=== PATIENT | male | born 1995 | race Caucasian/White ===

== ENCOUNTER 2023-06-29 17:38 | Emergency (ER) | payer OTHER, SELFPAY ==
[2023-06-29 17:40] VITALS: BP 130/83; PULSE 82; RESP 18; TEMP 37.1; O2SAT 99; BMI 27.3
--- NOTE | 2023-06-29 17:46 | ED_ITS ---
HPI - Abdominal Pain General Chief Complaint: Abdominal Pain Stated Complaint: ABDOMINAL PAIN Time Seen by Provider: 06/29/23 17:39 History of Present Illness HPI narrative: 27 -year-old male presents for abdominal pain. It started four days ago and it started in his right flank and then it moved to the side of his abdomen and now it's in the right lower abdomen. The patient has a history of kidney stones and passed one about a month ago. He states it feels a little bit different this time and he's worried about his appendix. No trauma or fever and the pain is continuous and moderate. Related Data Allergies Allergy/AdvReac Type Severity Reaction Status Date / Time No Known Drug Allergies Allergy Verified 06/29/23 17:45 Review of Systems ROS Narrative A ten point review of systems is negative except as noted above. Exam Narrative Exam Narrative: Nurses note and vital signs reviewed and patient is not hypoxic. General: The patient appears well and in no apparent distress. Patient is res ting comfortably on cart. Skin: Warm, dry, no pallor noted. There is no rash noted. Head: Normocephalic, atraumatic Eye: Normal conjunctiva, no drainage Ears, Nose, Mouth, and Throat: oral mucosa is moist. Nares patent. Cardiovascular: Regular Rate and Rhythm Respiratory: Patient is in no distress, no accessory muscle use, lungs are clear to auscultation, no wheezing, rales or rhonchi Back: non-tender, no CVA tenderness bilaterally to percussion. GI: tender only in the right lower quadrant Musculoskeletal: The patient has no evidence of calf tenderness, no pitting edema, symmetrical pulses noted bilaterally Neurological: A&O, normal speech Psychiatric: Cooperative Constitutional Vital Signs, click to edit/add: Last Vital Signs Temp 98.7 F 06/29/23 17:40 Pulse 82 06/29/23 17:40 Resp 18 06/29/23 17:40 BP 130/83 06/29/23 17:40 Pulse Ox 99 06/29/23 17:40 O2 Del Method Room Air 06/29/23 17:40 Course Vital Signs Vital signs: Vital Signs Temperature 98.7 F 06/29/23 17:40 Pulse Rate 82 06/29/23 17:40 Respiratory Rate 18 06/29/23 17:40 Blood Pressure 130/83 06/29/23 17:40 Pulse Oximetry 99 06/29/23 17:40 Oxygen Delivery Method Room Air 06/29/23 17:40 Temperature 98.7 F 06/29/23 17:40 Pulse Rate 82 06/29/23 17:40 Respiratory Rate 18 06/29/23 17:40 Blood Pressure 130/83 06/29/23 17:40 Pulse Oximetry 99 06/29/23 17:40 Oxygen Delivery Method Room Air 06/29/23 17:40 MDM - Abdominal Pain MDM Narrative Medical decision making narrative: tests are ordered and the patient is signed out to Dr. Tilley. No blood is noted in the urine. Differential Diagnosis Differential diagnosis: Likely abdominal pain, acute appendicitis, calculus of kidney, constipation and gastroenteritis Lab Data Labs: Lab Results 06/29/23 Range/Units 17:45 Urine Color Yellow (YELLOW) Urine Clarity Clear (CLEAR) Urine pH 5.5 (5.0-9.0) Ur Specific [place] >=1.030 A (1.005-1.025) Urine Protein Negative (NEG/TRACE) mg/dL Urine Glucose (UA) Negative (NEGATIVE) mg/dL Urine Ketones Trace A (NEGATIVE) mg/dL Urine Occult Blood Negative (NEGATIVE) Urine Nitrite Negative (NEGATIVE) Urine Bilirubin Negative (NEGATIVE) Urine Urobilinogen 0.2 (0.2-1.0) EU/dL Ur Leukocyte Esterase Negative (NEGATIVE) Urine RBC None seen (0-2) #/HPF Urine WBC None seen (NONE SEEN) #/HPF Ur Squamous Epith Cells Rare (NONE/RARE) #/LPF Urine Crystals None seen (None Seen) #/HPF Urine Bacteria None seen (NONE SEEN) #/HPF Urine Casts None seen (NONE SEEN) #/LPF Urine Mucus Moderate A (NONE SEEN) Discharge Plan Discharge Patient Disposition: Still a Patient
[2023-06-29 18:20] LABS: Bilirubin Urine NEGATIVE (NEGATIVE); Blood Urine NEGATIVE (NEGATIVE); Clarity Urine CLEAR (CLEAR); Color Urine YELLOW (YELLOW); Glucose Urine UA NEGATIVE (NEGATIVE); Ketones Urine TRACE mg/dL (NEGATIVE); Leukocyte Esterase Urine NEGATIVE (NEGATIVE); Nitrite Urine NEGATIVE (NEGATIVE); Protein Urine NEGATIVE (NEG/TRACE); Specific Gravity Urine >=1.030 (1.005-1.025); Urobilinogen Urine 0.2 EU/dL (0.2-1.0); pH Urine 5.5 (5.0-9.0)
[2023-06-29 18:22] LABS: Bacteria Urine NONE SEEN #/HPF (NONE SEEN); Mucus Urine MODERATE (NONE SEEN); RBC Urine NONE SEEN #/HPF (0-2); Squamous Epithelial Cell Urine RARE #/LPF (NONE/RARE); WBC Urine NONE SEEN #/HPF (NONE SEEN)
[2023-06-29 18:23] LABS: Cast Seen? NONE SEEN #/LPF (NONE SEEN); Crystals Seen? None Seen #/HPF (None Seen)
--- NOTE | 2023-06-29 18:24 | CT_ITS ---
[address] [address] Patient Name: LEX COLEMAN MRN: [id number] date: 1995 Sex: M Assigned Patient Location: ER Current Patient Location: ER Accession/Order Number: [id number] Exam Date: 06/29/2023 18:45 Report Date: 06/29/2023 19:33 At the request of: COLLINS WYATT Procedure: CT abdomen pelvis w con EXAM: CT abdomen pelvis w con; [id number] REASON FOR EXAM: right lower quadrant pain TECHNIQUE: Helical CT images of the abdomen and pelvis were obtained after the administration of IV contrast. Multiplanar reformats were generated at the scanner. Dose reduction technique used: Automated exposure control and/or adjustment of the mA and/or kV according to patient size and/or use of iterative reconstruction technique. COMPARISON: None. FINDINGS: Visualized Chest: Minimal left basilar atelectasis. Abdomen: Liver: Mild focal fatty infiltration along the falciform ligament. Gallbladder: Resected. Bile Ducts: No significant biliary ductal dilatation. Pancreas: No mass, ductal dilatation, or inflammatory changes. Spleen: No splenomegaly or focal lesion. Adrenals: No nodules. Kidneys: -No stones or hydronephrosis. -No mass. Vascular: No aortic aneurysm. Lymph Nodes: No adenopathy. Abdominal Wall: No hernia or mass. Pelvis: No mass or adenopathy. Bowel/Peritoneal Cavity/Mesentery: -No bowel obstruction or significant ileus. -No acute inflammatory changes. -No free air or free fluid. -The appendix is normal. Musculoskeletal: No acute fracture or suspicious osseous lesion. Mild diffuse increased density of the bone marrow. Mild/moderate osteophytosis both hips. Moderate degenerative changes with focal kyphosis involving the visualized lower thoracic spine which could represent Scheuermann's syndrome. CT/CT abdomen pelvis w con IMPRESSION: 1. No acute intra-abdominal abnormality demonstrated. Specifically, no kidney stones or evidence of acute appendicitis. 2. Mild diffuse bone marrow sclerosis which is of uncertain etiology. 3. 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 Electronically authenticated by: PALOMA PALAFOX Date: 06/29/2023 19:33
[2023-06-29 18:47] LABS: Basophils Absolute Auto 0.1 10^3/uL (0.0-0.1); Basophils Percent Auto 0.6 % (0.2-2.0); Eosinophils Absolute Auto 0.1 10^3/uL (0.0-0.7); Hematocrit 46.3 % (42.0-54.0); Hemoglobin 15.4 g/dL (14.0-18.0); Immature Granulocytes Abs Auto 0.03 10^3/uL (0.00-0.03); Immature Granulocytes Pct Auto 0.3 % (0.0-0.5); Lymphocytes Percent Auto 27.1 % (20.5-60.0); Mean Corpuscular HGB Conc 33.3 g/dL (29.9-35.2); Mean Corpuscular Hemoglobin 30.4 pg (25.9-34.0); Mean Corpuscular Volume 91.3 fL (80.0-94.0); Mean Platelet Volume 8.9 fL (9.5-13.5); Monocytes Absolute Auto 0.8 10^3/uL (0.3-0.8); Monocytes Percent Auto 7.2 % (1.7-12.0); Neutrophils Absolute Auto 7.1 10^3/uL (1.4-6.5); Neutrophils Percent Auto 63.8 % (43.0-75.0); Platelet Count 249 10^3/uL (150-450); Red Blood Count 5.07 10^6/uL (4.70-6.10); Red Cell Distribution Width 12.5 % (11.0-15.0); White Blood Count 11.2 10^3/uL (4.0-11.0)
[2023-06-29 18:56] LABS: Anion Gap 11.9; Calcium 9.2 mg/dL (8.5-10.1); Carbon Dioxide 27.4 mmol/L (21.0-32.0); Chloride 103 mmol/L (98-107); Estimated GFR (African America >60 (>=60); Estimated GFR (Non-African Ame >60 (>=60); Glucose 88 mg/dL (74-106); Potassium 4.3 mmol/L (3.5-5.1); Sodium 138 mmol/L (136-145)
== END 2023-06-29 20:05 | disposition home or self-care (01) ==
PROVIDERS: Emergency Medicine; Emergency Provider Internal Medicine
DX: R10.9 Unspecified abdominal pain (principal); Z87.442 Personal history of urinary calculi
CPT/HCPCS: 36415; 74177; 80048; 81001; 85025; 99284; Q9967

== ENCOUNTER 2024-05-22 16:07 | Emergency (ER) | payer OTHER, SELFPAY ==
[2024-05-22 16:14] VITALS: BP 147/85; PULSE 71; TEMP 36.7; O2SAT 100; BMI 34.4
--- NOTE | 2024-05-22 16:31 | ED_ITS ---
HPI HPI - General Adult General Chief complaint: Back Pain/Injury Stated complaint: Kidney Stone Time Seen by Provider: 05/22/24 16:28 Source: patient Mode of arrival: walk-in Limitations: no limitations History of Present Illness HPI narrative: Patient is a 20-year-old male who is presenting to the ER with chief complaint of left lower back pain, flank pain left lower quadrant pain. Patient said this pain started Wednesday evening, the pain has been consistent, the severity of the pain has been waxing and waning. Patient stated that he passed 3 kidney stones last year, he never came to the ER or saw a physician at that time. Patient has no urologist. Patient girlfriend is at bedside. Patient has dysuria and urgency when he is urinating. Patient has no abdominal pain, nausea or vomiting. No testicular pain. No hematuria. 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 No other acute complaints. All systems are negative except as noted/marked. All systems reviewed and otherwise negative. Nurses note and vital signs reviewed and patient is not hypoxic. General: The patient appears well and in no apparent distress. Patient is resting comfortably on cart. Patient is not toxic, lethargic, or listless Skin: Warm, dry, no pallor noted. There is no rash noted. No petechiae, purpura. Head: Normocephalic, atraumatic Eye: Normal conjunctiva, no drainage, EOMI. PERRL Ears, Nose, Mouth, and Throat: oral mucosa is moist. Nares patent. Mouth without vesicles. Cardiovascular: Regular Rate and Rhythm, no murmur, gallop, rub Respiratory: Patient is in no distress, no accessory muscle use, lungs are clear to auscultation, no wheezing, rales or rhonchi Back: Patient has mild to moderate left CVA tenderness to palpation, mild left flank tenderness to palpation, mild left lower quadrant tenderness palpation, no peritoneal signs, otherwise the rest of his abdomen is non-tender, + CVA on the right to percussion. No CT LS midline pain. GI: no tenderness to palpation, no masses appreciated. No rebound, guarding, or rigidity noted. No distention. No peritoneal signs, mild left lower quadrant tenderness to palpation, no suprapubic tenderness palpation. Musculoskeletal: Patient has full range of motion of all of the extremities, no motor, sensory, or focal neurological deficits Neurological: A&O x4, normal speech Psychiatric: Cooperative Related Data Home Medications ?Medication ?Instructions ?Recorded ?Confirmed pantoprazole 40 mg tablet,delayed 40 mg PO DAILY 05/22/24 05/22/24 release trazodone 50 mg tablet 50 mg PO DAILY 05/22/24 05/22/24 Previous Rx's ?Medication ?Instructions ?Recorded ketorolac 10 mg tablet 10 mg PO Q8H PRN pain 1 day #10 05/22/24 tabs ondansetron 4 mg disintegrating 4 mg PO Q4H PRN nausea and 05/22/24 tablet vomiting 3 days #6 tabs tamsulosin 0.4 mg capsule (Flomax) 0.4 mg PO DAILY 7 days #7 caps 05/22/24 Allergies Allergy/AdvReac Type Severity Reaction Status Date / Time No Known Drug Allergies Allergy Verified 06/29/23 17:45 Opioid HPI Opioid Management Most Recent Opioid Data: Last Pain Scale 8 05/22/24 17:09 05/22/24 PFSH PFSH Social History Little interest or pleasure in doing things: not at all Feeling down, depressed, or hopeless: not at all Exam Constitutional Vital Signs, click to edit/add: Last Vital Signs Temp 98.1 F 05/22/24 16:14 Pulse 57 L 05/22/24 18:36 Resp 18 05/22/24 18:36 BP 132/74 05/22/24 18:36 Pulse Ox 100 05/22/24 18:36 O2 Del Method Room Air 05/22/24 16:14 Course Vital Signs Vital signs: Vital Signs Temperature 98.1 F 05/22/24 16:14 Pulse Rate 71 05/22/24 16:14 Respiratory Rate 18 05/22/24 16:14 Blood Pressure 147/85 H 05/22/24 16:14 Pulse Oximetry 100 05/22/24 16:14 Oxygen Delivery Method Room Air 05/22/24 16:14 Temperature 98.1 F 05/22/24 16:14 Pulse Rate 57 L 05/22/24 18:36 Respiratory Rate 18 05/22/24 18:36 Blood Pressure 132/74 05/22/24 18:36 Pulse Oximetry 100 05/22/24 18:36 Oxygen Delivery Method Room Air 05/22/24 16:14 Medical Decision Making MDM Narrative Medical decision making narrative: Patient has had several CAT scans in the past. We will undergo a x-ray KUB to save radiation, education on radiation and multiple CAT scans in the past was discussed, patient agrees on x-ray. Patient will be given IV Toradol and Zofran. Patient requested to Ivan RN that no narcotics be given. Urine, labs, x-ray showed no acute findings. Patient was sent home with prescription for Toradol, Flomax, Zofran use as needed. Patient does not want a prescription for narcotics. Patient has a history of opioid dependence and abuse, he has been clean for 2 years. Patient was referred to Dr. Spears and understands that he should follow-up with antonia restrepo. No questions at discharge. Patient was thankful for help and care today. Lab Data Labs: Lab Results 05/22/24 05/22/24 Range/Units 16:21 16:53 WBC 8.8 (4.0-11.0) 10^3/uL RBC 4.88 (4.70-6.10) 10^6/uL Hgb 15.6 (14.0-18.0) g/dL Hct 43.3 (42.0-54.0) % MCV 88.7 (80.0-94.0) fL MCH 32.0 (25.9-34.0) pg MCHC 36.0 H (29.9-35.2) g/dL RDW 11.7 (11.0-15.0) % Plt Count 259 (150-450) 10^3/uL MPV 9.1 L (9.5-13.5) fL Neut % (Auto) 56.0 (43.0-75.0) % Lymph % (Auto) 36.2 (20.5-60.0) % [place] % (Auto) 5.7 (1.7-12.0) % Eos % (Auto) 0.9 (0.9-7.0) % Baso % (Auto) 0.9 (0.2-2.0) % Neut # (Auto) 4.9 (1.4-6.5) 10^3/uL Lymph # (Auto) 3.2 (1.2-3.8) 10^3/uL [place] # (Auto) 0.5 (0.3-0.8) 10^3/uL Eos # (Auto) 0.1 (0.0-0.7) 10^3/uL Baso # (Auto) 0.1 (0.0-0.1) 10^3/uL Abs Immat Gran (auto) 0.03 (0.00-0.03) 10^3/uL Imm/Tot Granulo (auto) 0.3 (0.0-0.5) % Sodium 141 (136-145) mmol/L Potassium 3.8 (3.5-5.1) mmol/L Chloride 106 (98-107) mmol/L Carbon Dioxide 23.5 (21.0-32.0) mmol/L Anion Gap 15.3 BUN 9.0 (7.0-18.0) mg/dL Creatinine 0.86 (0.70-1.30) mg/dL Est GFR ( Amer) >60 (>=60 mL/min/1.73m^2) Est GFR (Non-Af Amer) >60 (>=60 mL/min/1.73m^2) BUN/Creatinine Ratio 10.5 Glucose 98 (74-106) mg/dL Calcium 9.4 (8.5-10.1) mg/dL Total Bilirubin 0.4 (0.2-1.0) mg/dL AST 27 (15-37) U/L ALT 36 (16-63) U/L Alkaline Phosphatase 75 (46-116) U/L Total Protein 7.9 (6.4-8.2) g/dL Albumin 3.7 (3.4-5.0) g/dL Globulin 4.2 g/dL Albumin/Globulin Ratio 0.9 Urine Color Lt. yellow (YELLOW) Urine Clarity Clear (CLEAR) Urine pH 6.0 (5.0-9.0) Ur Specific [place] >=1.030 A (1.005-1.025) Urine Protein Negative (NEG/TRACE) mg/dL Urine Glucose (UA) Negative (NEGATIVE) mg/dL Urine Ketones Negative (NEGATIVE) mg/dL Urine Occult Blood Negative (NEGATIVE) Urine Nitrite Negative (NEGATIVE) Urine Bilirubin Negative (NEGATIVE) Urine Urobilinogen 0.2 (0.2-1.0) EU/dL Ur Leukocyte Esterase Negative (NEGATIVE) Urine RBC None seen (0-2) #/HPF Urine WBC None seen (NONE SEEN) #/HPF Ur Squamous Epith Cells Few A (NONE/RARE) #/LPF Urine Crystals None seen (None Seen) #/HPF Urine Bacteria Trace A (NONE SEEN) #/HPF Urine Casts None seen (NONE SEEN) #/LPF Urine Mucus Large A (NONE SEEN) Ur Culture Indicated? No Discharge Plan Discharge Chief Complaint: Back Pain/Injury Clinical Impression: Renal colic, Left lumbar pain Patient Disposition: Home, Self-Care Time of Disposition Decision: 18:44 Condition: Fair Prescriptions / Home Meds: New ketorolac 10 mg tablet 10 mg PO Q8H PRN (Reason: pain) 1 Days Qty: 10 0RF tamsulosin [Flomax] 0.4 mg capsule 0.4 mg PO DAILY 7 Days Qty: 7 0RF ondansetron 4 mg tablet,disintegrating 4 mg PO Q4H PRN (Reason: nausea and vomiting) 3 Days Qty: 6 0RF No Action trazodone 50 mg tablet 50 mg PO DAILY pantoprazole 40 mg tablet,delayed release (DR/EC) 40 mg PO DAILY Print Language: [place] Instructions: Kidney Stones (ED), Renal Colic (ED), Acute Low Back Pain (ED), How to Strain Your Urine (ED) Additional Instructions: Drink 1 gallon of water a day for the next 7 to 10 days to help up flush kidney stone if it is present. Use Toradol as needed to help with pain and inflammation. Use Zofran if needed for nausea vomiting. Take Flomax daily. Follow-up with urology and make an appointment to have establish kidney stone physician. Referrals: Physician,Non-Staff, MD [Primary Care Provider] - 1 week Discharge Date/Time: 05/22/24 18:57
--- NOTE | 2024-05-22 16:49 | XR_ITS ---
The [address] [address] Patient Name: LEX COLEMAN MRN: [id number] date: 1995 Sex: M Assigned Patient Location: ER Current Patient Location: Accession/Order Number: [id number] Exam Date: 05/22/2024 17:35 Report Date: 05/22/2024 19:48 At the request of: LUIS ENRIQUE FORTE Procedure: XR abdomen 1V EXAM: PLAIN FILM OF THE ABDOMEN HISTORY: Abdominal pain. COMPARISON: None. TECHNIQUE: 2 views of the abdomen/pelvis submitted for review. FINDINGS: Lines and Tubes: Clips are seen in the right upper quadrant. Free air: None. There are prominent gastric rugal folds. There are no abnormal calcifications. However, evaluation of the renal shadows is limited due to overlying bowel gas. No portal venous air. Osseous structures do not demonstrate any acute abnormality. XR/XR abdomen 1V IMPRESSION: 1. Nonobstructive bowel gas pattern. 2. Minimal retention of stool. 3. Prominent gastric rugal folds. Please correlate for gastritis. 4. No definite evidence of a stone. However, evaluation of the renal shadows is severely limited due to bowel gas. Electronically authenticated by: ADRIANE KAUR Date: 05/22/2024 19:48
[2024-05-22] MEDS: ONDANSETRON PF 4 MG/2 ML VIAL IV (16:57)
[2024-05-22] MEDS: KETOROLAC TROMETHAMINE 30 MG/ML VIAL 15 MG IVP (16:57)
[2024-05-22 16:58] LABS: Bilirubin Urine NEGATIVE (NEGATIVE); Blood Urine NEGATIVE (NEGATIVE); Clarity Urine CLEAR (CLEAR); Color Urine LT. YELLOW (YELLOW); Glucose Urine UA NEGATIVE (NEGATIVE); Ketones Urine NEGATIVE (NEGATIVE); Leukocyte Esterase Urine NEGATIVE (NEGATIVE); Nitrite Urine NEGATIVE (NEGATIVE); Protein Urine NEGATIVE (NEG/TRACE); Specific Gravity Urine >=1.030 (1.005-1.025); Urobilinogen Urine 0.2 EU/dL (0.2-1.0)
[2024-05-22 17:15] LABS: Cast Seen? NONE SEEN #/LPF (NONE SEEN); Crystals Seen? None Seen #/HPF (None Seen); Mucus Urine LARGE (NONE SEEN); RBC Urine NONE SEEN #/HPF (0-2); Squamous Epithelial Cell Urine FEW #/LPF (NONE/RARE); WBC Urine NONE SEEN #/HPF (NONE SEEN)
[2024-05-22 17:16] LABS: Bacteria Urine TRACE #/HPF (NONE SEEN); Urine Culture Indicated NO
[2024-05-22 17:18] LABS: Alanine Aminotransferase 36 U/L (16-63); Albumin Globulin Ratio 0.9; Albumin Level 3.7 g/dL (3.4-5.0); Alkaline Phosphatase 75 U/L (46-116); Anion Gap 15.3; Aspartate Amino Transferase 27 U/L (15-37); BUN Creatinine Ratio 10.5; Bilirubin Total 0.4 mg/dL (0.2-1.0); Calcium 9.4 mg/dL (8.5-10.1); Carbon Dioxide 23.5 mmol/L (21.0-32.0); Chloride 106 mmol/L (98-107); Estimated GFR (African America >60 (>=60 mL/min/1.73m^2); Estimated GFR (Non-African Ame >60 (>=60 mL/min/1.73m^2); Globulin 4.2 g/dL; Glucose 98 mg/dL (74-106); Potassium 3.8 mmol/L (3.5-5.1); Sodium 141 mmol/L (136-145); Total Protein 7.9 g/dL (6.4-8.2)
[2024-05-22 17:20] LABS: Basophils Absolute Auto 0.1 10^3/uL (0.0-0.1); Basophils Percent Auto 0.9 % (0.2-2.0); Eosinophils Absolute Auto 0.1 10^3/uL (0.0-0.7); Eosinophils Percent Auto 0.9 % (0.9-7.0); Hematocrit 43.3 % (42.0-54.0); Hemoglobin 15.6 g/dL (14.0-18.0); Immature Granulocytes Abs Auto 0.03 10^3/uL (0.00-0.03); Immature Granulocytes Pct Auto 0.3 % (0.0-0.5); Lymphocytes Absolute Auto 3.2 10^3/uL (1.2-3.8); Lymphocytes Percent Auto 36.2 % (20.5-60.0); Mean Corpuscular Volume 88.7 fL (80.0-94.0); Mean Platelet Volume 9.1 fL (9.5-13.5); Monocytes Absolute Auto 0.5 10^3/uL (0.3-0.8); Monocytes Percent Auto 5.7 % (1.7-12.0); Neutrophils Absolute Auto 4.9 10^3/uL (1.4-6.5); Platelet Count 259 10^3/uL (150-450); Red Blood Count 4.88 10^6/uL (4.70-6.10); Red Cell Distribution Width 11.7 % (11.0-15.0); White Blood Count 8.8 10^3/uL (4.0-11.0)
[2024-05-22 18:36] VITALS: BP 132/74; PULSE 57; O2SAT 100
== END 2024-05-22 18:57 | disposition home or self-care (01) ==
PROVIDERS: Emergency Provider Emergency Medicine
DX: N23 Unspecified renal colic (principal); M54.50 Low back pain, unspecified
CPT/HCPCS: 36415; 74018; 80053; 81001; 85025; 96374; 96375; 99285; J1885; J2405